=== PATIENT | female | born 1980 | race Caucasian/White ===

== ENCOUNTER 2023-04-24 09:10 | Outpatient (CLI) | payer OTHER, SELFPAY ==
--- NOTE | 2023-04-24 09:15 | CRLHL7_ITS ---
For Patients: As a result of the Century Cures Act, medical imaging exams and procedure reports are released immediately into your electronic medical record. You may view this report before your referring provider. If you have questions, please contact your health care provider. INDICATION: First trimester scan, establish dates. COMPARISON: None. TECHNIQUE: Real-time mcqueen-scale imaging of the pelvis was performed. FINDINGS: Sonographic imaging demonstrates a single living intrauterine gestation. The embryo demonstrates a regular cardiac rate measuring 169 beats per minute. The embryo`s crown-rump length measurement of 2.5 cm corresponds to a gestational age of 9 weeks 1 day with a sonographic due date of 11/26/2023. The yolk sac measures 4 x 6 x 6 millimeters. There are no gross abnormalities noted within the embryo at this early state of development. The gestational sac has a normal appearance. There is no evidence of a perigestational hemorrhage. The amount of fluid within the sac appears appropriate for gestational age. The cervix is closed. The myometrium appears normal. The ovaries are of normal size. Corpus luteal cyst right ovary there are no suspicious fluid collections noted in the cul-de-sac. IMPRESSION: Single living intrauterine with sonographic gestational age 9 weeks 1 day and sonographic due date 11/26/2023. Yolk sac measures 6 millimeters. Follow-up sonography in 7-14 days suggested. Dictated by Emerson Starr MD @ 04/24/2023 11:57:48 AM (Electronically Signed)
== END 2023-04-24 09:11 | disposition home or self-care (01) ==
LOC: US 09:11
PROVIDERS: Visit Provider Registered Nurse
DX: Z34.91 Encounter for supervision of normal pregnancy, unspecified, first trimester (principal); Z3A.09 9 weeks gestation of pregnancy
CPT/HCPCS: 76817

== ENCOUNTER 2023-04-24 10:25 | Outpatient (CLI) | payer OTHER, SELFPAY ==
[2023-04-24 18:01] LABS: Chlamydia DNA Amplified* Not Detected (No Detected); GC DNA Amplified* Not Detected (No Detected)
== END 2023-04-24 10:26 | disposition home or self-care (01) ==
PROVIDERS: Visit Provider Registered Nurse
DX: Z34.91 Encounter for supervision of normal pregnancy, unspecified, first trimester (principal)
CPT/HCPCS: 86592; 86703; 86704; 86706; 86762; 86787; 86803; 86850; 86900; 86901; 87086; 87340; 87491; 87591

== ENCOUNTER 2023-05-01 11:51 | Outpatient (CLI) | payer OTHER, SELFPAY ==
--- NOTE | 2023-05-01 12:15 | CRLHL7_ITS ---
For Patients: As a result of the Century Cures Act, medical imaging exams and procedure reports are released immediately into your electronic medical record. You may view this report before your referring provider. If you have questions, please contact your health care provider. INDICATION: Follow-up yolk sac COMPARISON: 04/24/2023 TECHNIQUE: Real-time mcqueen-scale imaging of the pelvis was performed. FINDINGS: Sonographic imaging demonstrates a single living intrauterine gestation. The embryo demonstrates a regular cardiac rate measuring 171 beats per minute. The embryo`s crown-rump length measurement of 3.6 cm corresponds to a gestational age of 10 weeks 4 days with a sonographic due date of 11/23/2023. The yolk sac measures 5.6 x 5.6 x 5.5 millimeters. Normal morphology. There are no gross abnormalities noted within the embryo at this early state of development. The gestational sac has a normal appearance. There is no evidence of a perigestational hemorrhage. The amount of fluid within the sac appears appropriate for gestational age. The cervix is closed. The myometrium appears normal. Corpus luteal cyst right ovary. Left ovary not visualized. There are no suspicious fluid collections noted in the cul-de-sac. IMPRESSION: Single living intrauterine with sonographic gestational age 10 weeks 4 days and sonographic due date 11/23/2023. Yolk sac appears normal. Dictated by Emerson Starr MD @ 05/02/2023 10:07:26 AM (Electronically Signed)
== END 2023-05-01 11:52 | disposition home or self-care (01) ==
LOC: US 11:51
PROVIDERS: Visit Provider Registered Nurse
DX: Z34.91 Encounter for supervision of normal pregnancy, unspecified, first trimester (principal); Z3A.10 10 weeks gestation of pregnancy
CPT/HCPCS: 76817

== ENCOUNTER 2023-09-02 13:36 | Outpatient (CLI) | payer OTHER, SELFPAY | END 2023-09-02 13:37 | disposition home or self-care (01) | LOC: NFLDREF 09-17 12:16 | PROVIDERS: Visit Provider Obstetrics & Gynecology | DX: Z34.83 Encounter for supervision of other normal pregnancy, third trimester (principal) | CPT/HCPCS: 86592 ==

== ENCOUNTER 2023-10-14 07:22 | Outpatient (CLI) | payer OTHER, SELFPAY ==
--- NOTE | 2023-10-14 07:15 | CRLHL7_ITS ---
For Patients: As a result of the Century Cures Act, medical imaging exams and procedure reports are released immediately into your electronic medical record. You may view this report before your referring provider. If you have questions, please contact your health care provider. INDICATION: Third trimester scan, evaluate growth. COMPARISON: 05/01/2023, 07/29/2023 TECHNIQUE: Real time mcqueen scale imaging of the fetus was performed as well as color Doppler and spectral Doppler analysis of the umbilical artery. FINDINGS: Sonographic imaging demonstrates a single living intrauterine gestation. Fetus demonstrates a regular cardiac rate of 135 beats per minute. Fetus has a vertex position. The placenta lies anteriorly. Amniotic fluid volume appears normal and there is a single deepest vertical pocket: 6.5 cm. The estimated weight is 2084gm which lies at the 17th %. On the prior OB ultrasound exam dated 07/29/2023 the estimated weight was at the 48th%. BPD less than 3rd percentile. HC 6th percentile. AC 13th percentile. FL 42nd percentile. The HC/AC ratio measures 1.05 range (0.96-1.11). IMPRESSION: Sonographic gestational age 32 weeks 6 days and sonographic due date of 12/03/2023. Sonographic age 8 days behind the clinical age. Estimated weight 17th percentile. Abdominal circumference 13th percentile. BPD less than 3rd percentile. Dictated by Emerson Starr MD @ 10/14/2023 11:26:57 AM (Electronically Signed)
== END 2023-10-14 07:23 | disposition home or self-care (01) ==
LOC: US 07:22
PROVIDERS: Visit Provider Obstetrics & Gynecology
DX: Z34.93 Encounter for supervision of normal pregnancy, unspecified, third trimester (principal); Z3A.32 32 weeks gestation of pregnancy
CPT/HCPCS: 76816

== ENCOUNTER 2023-10-28 13:13 | Outpatient (CLI) | payer OTHER, SELFPAY ==
[2023-10-29 15:37] LABS: Strep B DNA Probe Negative (Negative)
[2023-10-29 15:48] LABS: Strep B Susceptibility Needed? No
== END 2023-10-28 13:14 | disposition home or self-care (01) ==
PROVIDERS: Visit Provider Obstetrics & Gynecology
DX: Z34.93 Encounter for supervision of normal pregnancy, unspecified, third trimester (principal); Z3A.36 36 weeks gestation of pregnancy
CPT/HCPCS: 87081; 87653

== ENCOUNTER 2023-11-17 16:11 | Inpatient (IN) | payer OTHER, SELFPAY ==
[2023-11-17] VITALS (7 sets, daily range): BP systolic 125–145; BP diastolic 69–95; PULSE 49–72; RESP 16; TEMP 36.8–36.9; O2SAT 99; BMI 36.8
[2023-11-17] MEDS: miSOPROStoL 25 MCG/0.25 TABLET VAGINAL ×3 (16:55→23:36)
--- NOTE | 2023-11-17 17:15 | P.LDBA_ITS ---
Subjective History of Present Illness Time Seen by Provider: 17:15 Date Seen: 11/17/23 Narrative: Patient is being admitted to Labor and Delivery for scheduled induction of labor due to AMA. She is a 43 year old at 38.6 weeks gestation. Her full history and physical was dictated by Dr. Juan on 11/06/23. Please see this for details. She is anxious now that her induction is here. Feels like she's coping well though. Will let me know if she anxiety worsens. They are excited for [place] and has everything ready. She is adaptable in her expectations and note she is not scared of a delivery. However, would like to do everything possible to avoid an emergency delivery. Anticipate that she will eventually want an epidural. Active movement. Denies LOF, vaginal bleeding or abnormal vaginal discharge. Some Siddhartha Osorio contractions. Specific Issues/Plans G 2 P 0010 at 9 weeks 2 days based on LMP 1. AMA. 43 at time of delivery. * Genetic screen: NIPT drawn on 05/01, NEGATIVE * Level 2/MFM consult: 07/08/23 incidental echogenic intracardiac focus, no other anomalies. F/U with MFM scheduled in 3 weeks to reassess structures not well seen. * Follow-up 07/29/2023: Cephalic, anterior placenta, three-vessel cord, normal fluid, EFW 48%, AC 43% normal completed anatomy scan. * [x] Growth US @ 34 weeks - EFW 2084g at 17%ile, BPD <3%ile, HC 6%ile, AC 13%ile. Discussed head measurements, offered repeat MFM consult but has normal NIPT/level 2 US. * Weekly NST/BPP starting at 36 weeks - testing form completed 10/13 * Delivery 39-40 weeks 2. BMI 36.1 * Low dose aspirin at 12 weeks * Weekly BPP and/or NST at 36 weeks 3. HSV. * Prophylaxis at 36 weeks * Ordered on 10/28/23 4. Anxiety. * Lexapro 10mg daily. Will send refills. States she is stable when on her medication. 5. Nonimmune to hepatitis-B. Vaccine given 05/17/2023 Flu: completed Covid: completed, not boosted. Recommended. Declined. TDAP: 09/16/23 OB - Problem Based A/P Additional Plan (1) : Status: Acute (2) Advanced maternal age (AMA), 40 years or greater: Status: Acute (3) Anxiety and depression: Status: Acute (4) GERD (gastroesophageal reflux disease): Status: Acute (5) Genital herpes: Status: Acute (6) Obesity (BMI 30-39.9): Status: Acute Plan Induction ? SVE /2 ? [place] irregular contractions ? Pain management plan: Epidural eventually ? Cervical ripening: Misoprostol PV per protocol Wellbeing NST: Baseline 130s beats per minute, moderate variability, multiple 15 x 15 accelerations, negative decelerations. Cat I [place]: Irregular GHTN r/o Pre-Eclampsia ? Based on persistent mild range in blood pressures since admission. This is a new finding for her. ? BPs 130s-140s/90s ? Symptoms: Asymptomatic ? Magnesium: currently not indicated ? IV antihypertensives: currently not indicated ? Pre-eclampsia labs: Pending OB Exam Physical Exam Vital signs: Temp Pulse Resp BP Pulse Ox 98.5 F 65 16 131/92 H 99 11/17/23 16:42 11/17/23 16:42 11/17/23 16:42 11/17/23 16:42 11/17/23 16:42 Narrative: Physical exam: General: No acute distress Psych: Alert and oriented x3, full affect HEENT: Normocephalic, atraumatic Lungs: Unlabored breathing Neuro: No focal deficit. Mentating appropriately Pelvic exam: /-2 per RN check
[2023-11-17 19:24] LABS: Basophils Absolute Auto 0.04 K/uL (0.00-0.30); Basophils Percent Auto 0.5 % (0.0-3.0); Eosinophils Absolute Auto 0.31 K/uL (0.00-0.50); Eosinophils Percent Auto 3.5 % (0.0-7.0); Hematocrit 41.3 % (33.0-51.0); Hemoglobin* 13.6 gm/dL (12.0-16.0); Immature Granulocytes Abs Auto 0.02 K/uL (0.00-0.30); Immature Granulocytes Pct Auto 0.2 %; Lymphocytes Absolute Auto 1.96 K/uL (0.90-2.90); Lymphocytes Percent Auto 22.4 % (20-44); Mean Corpuscular HGB Conc 33 gm/dL (32-36); Mean Corpuscular Hemoglobin 29 pg (26-34); Mean Corpuscular Volume 87 fL (80-100); Monocytes Percent Auto 8.3 % (0.0-11.0); Neutrophils Percent Auto 65.1 % (42.0-72.0); Platelet Count* 259 K/uL (140-440); RDW Coefficient of Variation % 13.1 % (11.5-15.5); Red Blood Count 4.73 m/uL (4.00-5.20); White Blood Count* 8.76 K/uL (4.50-11.00)
[2023-11-17 19:25] LABS: Slide Review Reflex No
[2023-11-17 19:39] LABS: Alanine Aminotransferase* 17 U/L (4-35); Aspartate Amino Transferase* 30 U/L (12-35); Blood Urea Nitrogen* 12 mg/dL (5-24); Creatinine* 0.6 mg/dL (0.5-1.5); Est. Creatinine Clearance* 106.55; Estimated Glomerular Filt Rate 116 ml/min
[2023-11-17 19:48] LABS: Total Protein Urine < 5 mg/dL
[2023-11-17 19:49] LABS: Creatinine Urine 65.7 mg/dL; Protein Creatinine Ratio Urine 0.08 (0-0.19)
[2023-11-18] VITALS (68 sets, daily range): BP systolic 104–149; BP diastolic 49–90; PULSE 46–110; RESP 16–18; TEMP 36.6–37.2; O2SAT 80–100
[2023-11-18] MEDS: hydrOXYzine pamoate 25 MG CAPSULE 100 MG PO (00:54)
[2023-11-18] MEDS: miSOPROStoL 25 MCG/0.25 TABLET VAGINAL ×2 (05:08→08:27)
[2023-11-18] MEDS: LACTATED RINGERS 1000 ML 1,000 ML IV (06:30)
--- NOTE | 2023-11-18 12:08 | PM.OBPNL ---
Subjective Time Seen by Provider: 11:50 Date Seen: 11/18/23 Narrative: Ju is a 43 yo woman at 39 0/7 weeks' gestation here for IOL for AMA. Thus far, she has received 5 doses of vaginal cytotec for cervical ripening. She is feeling more contractions, mostly in her back. Objective Exam: Gen - On birthing ball when I enter SVE - 2 / 80 / -2 / anterior / soft Vital Signs: Last Vital Signs Temp 98.5 F 11/18/23 08:16 Pulse 46 L 11/18/23 08:16 Resp 16 11/17/23 16:42 BP 129/87 11/18/23 08:16 Pulse Ox 99 11/18/23 04:36 Comments: tracing in last hour: Baseline 130 / accelerations present / no decelerations / moderate variability. Contractions are registering inconsistently Assessment Assessment: early labor Status: Category l Tracing Comments: GBS negative Labor Progress: Now with favorable cervix after 5 doses cytotec Maternal Status: Reassuring Plan Plan: Begin Pitocin augmentation of labor. Continuous monitoring.
[2023-11-18] MEDS: OXYTOCIN 30 unit/500 ML in NS 30 UNIT/500 ML BAG IVPB (12:45)
[2023-11-18] MEDS: LACTATED RINGERS 1000 ML 1,000 ML 122 ML IV (14:35)
[2023-11-18] MEDS: ROPIVACAINE 0.2 % PF 10 ML INJ 20 MG EPIDURAL (16:28)
[2023-11-18] MEDS: LIDOCAINE 2% (PF) 5 ML VIAL EPIDURAL (16:29)
[2023-11-18] MEDS: ROPIVACAINE 0.2% 100 ml 100 ML 12 MG EPIDURAL (16:29)
--- NOTE | 2023-11-18 16:38 | PM.ANBPRC ---
[facility] Medical History Abnormal yolk sac ?O41.8X90 - Other specified disorders of amniotic fluid and membranes, unspecified trimester, not applicable or unspecified (ICD-10) History of abnormal cervical Pap smear ?Z87.42 - Personal history of other diseases of the female genital tract (ICD-10) Infertility History of HPV infection ?Z86.19 - Personal history of other infectious and parasitic diseases (ICD-10) Surgical History [place] teeth extracted ?K08.409 - Partial loss of teeth, unspecified cause, unspecified class (ICD-10) Family History Other Cardiovascular disease Dementia Ophthalmic disorder Prostate cancer Stroke Thyroid disease Social History 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 What is your current living situation?: I presently have a place to live Problems where you live: no known problems In the past 12 months, utilities in danger of being shut off: no In past 12 months, lack of transportation kept you from medical appts, meetings, work, or getting things needed for daily living: no In the past 12 mos, have been you worried that your food would run out before you had money to buy more?: never true In the past 12 mos, the food you bought just didn't last and you didn't have money to buy more?: never true Smoking Status: Never smoker How often does anyone, including family, friends and others, physically hurt you: never How often does anyone, including family, friends and others, insult or talk down to you: never How often does anyone, including family, friends and others, threaten you with harm: never How often does anyone, including family, friends and others, scream or curse at you: never Little interest or pleasure in doing things: not at all Feeling down, depressed, or hopeless: not at all Meds Home Medications and Allergies Home Medications ?Medication ?Instructions ?Recorded ?Confirmed ?Type docosahexaenoic acid 200 mg 200 mg PO DAILY 04/24/23 11/18/23 History capsule ( DHA) aspirin 81 mg tablet,delayed 81 mg PO QDAY 06/14/23 11/17/23 History release ondansetron HCl 4 mg tablet 4 mg PO Q8H PRN nausea and vomiting 08/06/23 11/17/23 History Allergies Allergy/AdvReac Type Severity Reaction Status Date / Time COVID-19 vacc, bv (Orig, AdvReac Severe Verified 11/06/23 12:57 Omicron BA.4/5) (Pfizer) [From Pfizer COVID Bival(12y up)()] Penicillins AdvReac Intermediate Hives Verified 11/06/23 12:57 Results Labs Labs: Laboratory Results - last 24 hr 11/17/23 11/17/23 11/17/23 19:07 19:19 Unknown WBC 8.76 RBC 4.73 Hgb 13.6 Hct 41.3 MCV 87 MCH 29 MCHC 33 RDW Coeff of Daniel 13.1 Plt Count 259 Neut % (Auto) 65.1 Lymph % (Auto) 22.4 [place] % (Auto) 8.3 Eos % (Auto) 3.5 Baso % (Auto) 0.5 Neut # (Auto) 5.70 Lymph # (Auto) 1.96 [place] # (Auto) 0.70 Eos # (Auto) 0.31 Baso # (Auto) 0.04 Abs Immat Gran (auto) 0.02 Imm/Tot Granulo (auto) 0.2 BUN 12 Creatinine 0.6 Estimated Creat Clear 106.55 Estimated GFR 116 AST 30 ALT 17 Urine Creatinine 65.7 Protein/Creatinin Ratio 0.08 Urine Total Protein < 5 Blood Type O Positive Antibody Screen NEGATIVE Vital Signs Vital Signs: Last Vital Signs Temp 98 F 11/18/23 12:43 Pulse 70 11/18/23 16:37 Resp 16 11/17/23 16:42 BP 133/77 11/18/23 16:37 Pulse Ox 99 11/18/23 16:36 Weight: 97.296 kg Height: 162.56 cm Anesthesia Procedures Epidural Insertion Patient Location: OB Start Time: 15:55 Stop Time: 16:39 Start Date: 11/18/23 Stop Date: 11/18/23 Reason for Block: procedure for pain Patient Position: sitting Performed By: Franc Davenport Preanesthetic Checklist: IV checked, risks and benefits discussed, surgical consent, monitors and equipment checked, pre-op evaluation, timeout performed and anesthesia consent Prep: chlorhexidine gluconate Monitoring: blood pressure monitoring, continuous pulse oximetry and heart rate Approach: midline Vertebral Space: lumbar (1-5) Epidural Technique: HENRY air Needle Type: Tuohy needle Injection Technique: continuous catheter Needle gauge: 17 Needle Length (cm): 10 cm Needle Insertion Depth (cm): 7 Catheter Gauge: 19 Catheter Type: multi-orifice Catheter at skin depth (cm): 13 Test Dose Result: negative and lidocaine 1.5% with epinephrine 1 to 200,000
[2023-11-18] MEDS: LACTATED RINGERS 1000 ML 1,000 ML 121 ML IV (18:28)
[2023-11-18] MEDS: TERBUTALINE 1 MG/ML INJ 0.25 MG SUBCUT (19:23)
--- NOTE | 2023-11-18 19:33 | P.OBPN_ITS ---
Subjective Time Seen by Provider: 19:34 Date Seen: 11/18/23 Narrative: Ju is a 43-year-old woman here for induction of labor for advanced maternal age, diagnosed with gestational hypertension intrapartum. She received 2 doses of vaginal Cytotec then had spontaneous rupture of membra lily and progressed into active labor. She had an epidural this afternoon. Before the epidural, her cervical exam had been 2 cm dilated, 80% effaced. Fetus exhibited deep decelerations into the 50s around 8:30 p.m.. Cervical exam at this time revealed her to be nearly completely dilated with circumferential cervical lip. Pitocin was stopped. She was placed on hands and knees. Fetus recovered to baseline of around 130, but continued to have variable decelerations with most contractions. Subsequent cervical exam by me showed her to be completely dilated and around +1/3 station at 7:00 p.m.. She has been pushing since that time, but fetus has exhibited deep variable decelerations with most contractions, most recently not responding to position changes. station is too high for me to reliably succeed at vacuum assisted vaginal delivery. Therefore, I recommended she be given terbutaline. She has received this injection. heart rate does recover between contractions to 150, and, in the last 15 minutes, variable decelerations have become less deep. Fetus continues to have moderate variability between contractions. Ju was pushing with good effort, but fetus is intolerant of labor. Because of this, I have recommended for intolerance of labor. Ju agrees. We briefly discussed risks of , including bleeding, infection, thromboembolism. Ju requests bilateral salpingectomy if her is doing well after delivery. Objective Exam: Physical exam: General: No acute distress Psych: Alert and oriented x3, full affect HEENT: Normocephalic, atraumatic Heart: Regular rate and rhythm, no murmur rub or gallop Lungs: Clear to auscultation bilaterally Abdomen: Soft, nontender, gravid Lower extremities: No edema or erythema Pelvic exam: Complete, +1, OA, pushing with good effort Vital Signs: Last Vital Signs Temp 98.4 F 11/18/23 18:05 Pulse 89 11/18/23 19:21 Resp 18 11/18/23 18:05 BP 118/82 11/18/23 19:21 Pulse Ox 100 11/18/23 18:33 Assessment Assessment: other (Second stage labor, intolerance of labor) Status: Category ll Tracing Comments: As above Labor Progress: 2nd stage Maternal Status: Normotensive Plan Plan: with possible bilateral salpingectomy
[2023-11-18] MEDS: AZITHROMYCIN 500 MG in 0.9 % SODIUM CHLORIDE 250 ml 250 ML 255 MG IVPB (19:48)
[2023-11-18] MEDS: CEFAZOLIN 2 GM INJ IVP (20:00)
[2023-11-18] MEDS: LACTATED RINGERS 1000 ML 1,000 ML 100 ML IV (20:13)
--- NOTE | 2023-11-18 21:33 | SUR.OPER ---
PATIENT ARRIVED TO OPERATING ROOM WITH ROB INTACT/BLOODY DRAINAGE PRESENT-EPIDURAL IN PLACE.
--- NOTE | 2023-11-18 21:38 | P.ANES_ITS ---
Anesthesia Charges Start Date/Time Anesthesia Start Date: 11/18/23 Anesthesia Start Time: 21:38 Stop Date/Time Anesthesia Stop Date: 11/18/23 Anesthesia Stop Time: 21:38 Summary Emergency: CERTIFIED MEDICINE AIDE
--- NOTE | 2023-11-18 22:24 | PM.OBPRCCS ---
Procedure Date of procedure: 11/18/23 Pre-op diagnosis: Non reassuring status, undesired fertility Post-op diagnosis: same Procedure Done: Global Will [facility] bill your pro fee for this procedure?: Yes Blood Loss Measurement Type: QBL (585) Bakri Used: No IV fluids (mL): 1,400 Urine Output (mL): 100 Urine Output Comment: Blood tinged at start of procedure Surgeon: Danielle Hassan MD Anesthesia Type: Epidural Findings: 1. Male , cephalic OA presentation, Apgars of 8 and 9, weight 5 lb, 15 oz 2. Normal appearance to uterus, bilateral tubes and ovaries Procedure Name: Primary low-transverse delivery Bilateral salpingectomy Procedure Description: Patient was taken to the operating room with IV running. She received cefazolin and azithromycin in preoperative prophylaxis. Epidural anesthesia had previously been administered. Brand catheter was previously inserted. She was prepped and draped in the usual sterile fashion. Anesthesia was tested and found to be adequate. A low-transverse skin incision was made with a scalpel and carried through to the underlying layer of fascia with the scalpel. The subcutaneous fat was dissected off the underlying fascia bluntly. The fascia was nicked in the midline with a scalpel, and this incision was extended laterally with scissors. The rectus muscles were in the midline. Peritoneum was identified and entered bluntly. Bovie was used to widen this opening laterally. Yeison O retractor was inserted and tightened down, providing excellent visualization of the lower uterine segment. The bladder reflection was found to be advanced along the lower uterine segment. A bladder flap was created with a combination of sharp and blunt dissection. There was significant bleeding noted between the lower uterine segment and the bladder reflection at time of blunt dissection. Low-transverse uterine incision was made with a scalpel. Incision was widened bluntly. The 's head was grasped through the hysterotomy and delivered with the help of fundal pressure. The remainder of the body delivered without incident. Cord was clamped and cut after 30 seconds. Infant was handed off to attending nurses. The placenta was delivered with gentle traction on the cord. The uterus was exteriorized and cleaned of all clots and debris with the dry lap pad. The hysterotomy was reapproximated with 0 Vicryl in a running, locked fashion. A total of 3 [id number]-[id number] sutures were used in imbricating fashion to obtain hemostasis. The adnexa were examined and noted to be normal in appearance. The left tube was grasped in its mid isthmic portion with a Inocente clamp. The blood supply was coagulated and transected distally with the LigaSure exact device. Dissection was carried medially through the mesosalpinx until reaching the left cornua, with the tube was cauterized and transected. This tube was sent to pathology. This procedure was then repeated on the patient's right side. Hemostasis was noted bilaterally. The uterus was returned to the abdomen. The cul-de-sac and gutters were cleansed with dampened laparotomy sponge, removing any further clots and debris. The Yeison O retractor was removed. The hysterotomy was reexamined and found to be hemostatic. However, there continued to be fairly heavy bleeding between the bladder reflection and the lower uterine segment, noticed when laparotomy packs were removed. Three [id number]-bd-hhrwr sutures of 2-0 chromic were required around the superior aspect of the bladder reflection. These were successful in obtaining hemostasis and placed superficially. The bladder was obviously holding fluid at this time. Yisel hemostatic agent was used between the bladder and lower uterine segment. The peritoneum was reapproximated with 2 0 Vicryl in a running fashion. The rectus muscles were examined and Bovie used on oozing vessel. The fascia was reapproximated with 0 Vicryl in a running fashion. Subcutaneous fat was irrigated and Bovie used on oozing vessels. The subcutaneous fat was reapproximated with 2 0 plain gut suture in an interrupted fashion. The skin was closed with a subcuticular stitch of 4-0 Monocryl. Surgical glue was applied above this. Patient tolerated procedure well was taken to recovery area in stable condition. Pathology: specimen obtained, sent to pathology Surgery Debrief Performed: Yes Surgery Debrief Comment: I confirmed my request to send bilateral fallopian tubes and placenta to pathology for further analysis with the OR staff. Condition: stable Disposition: floor [address] Infant total score - 1 minute: 8 total score - 5 minute: 9
[2023-11-18] MEDS: ACETAMINOPHEN 500 MG TABLET 1000 MG PO (23:54)
[2023-11-19] VITALS (25 sets, daily range): BP systolic 101–131; BP diastolic 62–88; PULSE 66–82; RESP 16–20; TEMP 36.2–36.9; O2SAT 96–99
[2023-11-19] MEDS: KETOROLAC 30 MG/ML inj IVP ×4 (03:54→22:09)
[2023-11-19 05:41] LABS: Basophils Percent Auto 0.1 % (0.0-3.0); Hematocrit 35.1 % (33.0-51.0); Hemoglobin* 11.5 gm/dL (12.0-16.0); Immature Granulocytes Pct Auto 0.3 %; Lymphocytes Percent Auto 5.6 % (20-44); Mean Corpuscular HGB Conc 33 gm/dL (32-36); Mean Corpuscular Hemoglobin 29 pg (26-34); Mean Corpuscular Volume 88 fL (80-100); Monocytes Percent Auto 7.7 % (0.0-11.0); Neutrophils Percent Auto 86.3 % (42.0-72.0); Platelet Count* 225 K/uL (140-440); RDW Coefficient of Variation % 13.2 % (11.5-15.5); White Blood Count* 14.76 K/uL (4.50-11.00)
[2023-11-19 05:45] LABS: Slide Review Reflex No
[2023-11-19 05:56] LABS: Alanine Aminotransferase* 15 U/L (4-35); Aspartate Amino Transferase* 44 U/L (12-35); Blood Urea Nitrogen* 11 mg/dL (5-24); Creatinine* 0.7 mg/dL (0.5-1.5); Est. Creatinine Clearance* 91.33; Estimated Glomerular Filt Rate 111 ml/min
--- NOTE | 2023-11-19 09:04 | PM.OBPNVD1 ---
OB - PN:Subj Subjective Date Seen: 11/19/23 Patient comments OB post-: no complaints, pain well controlled, tolerating diet and flatus present [place] status: (working on latch and pumping) and doing well feeding status: exclusively (finger feeding expressed milk and pumping) Narrative: Ju feels well.? Her pain is well controlled with current medications.? She has no new complaints.? Urinary output is adequate and she is voiding without difficulty.? Has a good appetite, is tolerating a general diet, is passing flatus, and has not had a bowel movement.? Has scant amount of rubra lochia.? She is ambulating well.?She is and working on the latch and pumping. OB - PN: Obj Exam Physical Exam: Vital signs: Temp Pulse Resp BP Pulse Ox O2 Del Method 97.6 F 67 16 130/77 99 Room Air 11/19/23 08:16 11/19/23 08:16 11/19/23 08:37 11/19/23 08:16 11/19/23 08:16 11/19/23 08:16 Narrative: GENERAL APPEARANCE:? normal affect, alert, no distress? MOOD:? appropriate? CHEST:? clear to auscultation and percussion? HEART:? regular rate and rhythm? ABDOMEN:? soft, non-tender the uterine fundus is U/2 and is appropriate for the stage of recovery. Incision dressing is clean, dry and intact.? EXTREMITIES:? normal and no edema? Urinary Catheter Management: Urethral: Cath placed during this visit: yes, but has since been removed by the nurse Reason for continuing: surgical procedure Removal date: 11/19/23 Removal time: 05:10 OB - PN: Obj Data Labs Labs: Laboratory Results - last 24 hr 11/19/23 05:00 WBC 14.76 H RBC 4.00 Hgb 11.5 L Hct 35.1 MCV 88 MCH 29 MCHC 33 RDW Coeff of Daniel 13.2 Plt Count 225 Neut % (Auto) 86.3 H Lymph % (Auto) 5.6 L [place] % (Auto) 7.7 Eos % (Auto) 0.0 Baso % (Auto) 0.1 Neut # (Auto) 12.70 H Lymph # (Auto) 0.80 L [place] # (Auto) 1.10 H Eos # (Auto) 0.00 Baso # (Auto) 0.00 Abs Immat Gran (auto) 0.00 Imm/Tot Granulo (auto) 0.3 BUN 11 Creatinine 0.7 Estimated Creat Clear 91.33 Estimated GFR 111 AST 44 H ALT 15 OB - PN: A/P Delivery Assessment and Plan (1) Anxiety and depression: Status: Acute (2) Genital herpes: Status: Acute (3) Lactating mother: Status: Acute (4) care following delivery: Status: Acute Plan day: 1 Plan: routine care Comments: Anticipate discharge home tomorrow or the following day. She would like to consider discharge home tomorrow if pain is well controlled.
[2023-11-19 23:13] LABS: Rapid Plasma Reagin (RPR) Non Reactive (Non Reactive)
[2023-11-20 04:00] VITALS: BP 107/67; PULSE 67; RESP 16; TEMP 36.4; O2SAT 99
[2023-11-20] MEDS: IBUPROFEN 600 MG TABLET PO (07:31)
[2023-11-20] MEDS: DOCUSATE SODIUM 100 MG CAPSULE PO (07:31)
[2023-11-20 07:38] VITALS: BP 129/84; PULSE 67; RESP 16; TEMP 36.4; O2SAT 100
--- NOTE | 2023-11-20 07:48 | P.DS_ITS ---
DS: Providers Provider Date Seen: 11/20/23 Date of admission: 11/17/23 16:11 Primary care physician: Not a Local Provider Admitting Clinician: Danielle Hassan MD Attending Physician on discharge: Josh OSPINA APRN Date of Discharge: 11/20/23 DS: Diagnosis Discharge Diagnosis (1) care following delivery: Status: Acute (2) Lactating mother: Status: Acute (3) Anxiety and depression: Status: Acute (4) Advanced maternal age (AMA), 40 years or greater: Status: Acute (5) S/P tubal ligation: Status: Acute Exam Narrative: Exam Narrative: GENERAL APPEARANCE:? normal affect, alert, no distress MOOD:? appropriate CHEST:? clear to auscultation HEART:? regular rate and rhythm ABDOMEN:? soft, non-tender the uterine fundus is At Umbilicus, Midline and is appropriate for the stage of recovery. EXTREMITIES:? normal and mild edema Incision: Healing well, no surrounding erythema, only mild brusing. No abnormal induration or discharge Const: Vital Signs, click to edit/add: Vital Signs - 24 hr 11/19/23 08:16 11/19/23 08:37 11/19/23 09:37 Temperature 97.6 F Pulse Rate [Pulse Oximeter] 67 Respiratory Rate 16 16 16 Blood Pressure [Le ft Arm] 130/77 Pulse Oximetry 99 Oxygen Delivery Me thod Room Air 11/19/23 10:37 11/19/23 11:37 11/19/23 11:43 Temperature 97.5 F L Pulse Rate [Pulse Oximeter] 69 Respiratory Rate 16 16 16 Blood Pressure [Le ft Arm] 114/75 Pulse Oximetry Oxygen Delivery Me thod Room Air 11/19/23 12:37 11/19/23 13:37 11/19/23 14:21 Temperature Pulse Rate [Pulse Oximeter] Respiratory Rate 16 16 16 Blood Pressure [Le ft Arm] Pulse Oximetry Oxygen Delivery Me thod 11/19/23 16:00 11/19/23 16:30 11/19/23 17:33 Temperature 97.2 F L Pulse Rate [Pulse Oximeter] 67 Respiratory Rate 16 16 16 Blood Pressure [Le ft Arm] 101/62 Pulse Oximetry 97 Oxygen Delivery Me thod Room Air 11/19/23 18:37 11/19/23 19:37 11/19/23 20:00 Temperature 97.9 F Pulse Rate [Pulse Oximeter] 82 Respiratory Rate 16 18 18 Blood Pressure [Le ft Arm] 128/84 Pulse Oximetry 99 Oxygen Delivery Me thod Room Air 11/19/23 20:37 11/20/23 04:00 11/20/23 07:38 Temperature 97.6 F 97.6 F Pulse Rate [Pulse Oximeter] 67 67 Respiratory Rate 18 16 16 Blood Pressure [Le ft Arm] 107/67 129/84 Pulse Oximetry 99 100 Oxygen Delivery Me thod Room Air Room Air OB - DS: Summary Hospital Course Hospital Course: The patient is a 43 year old G 2 P 1011 that was admitted to the [facility] on 11/17/23 for IOL for AMA at 38w6d. She had an uncomplicated delivery with bilateral tubal ligation. She delivered a viable male infant. She is and having difficulty with latch so is supplementing with pumped colostrum and formula. the patient has done well. The patient feels well.? The pain is well controlled with current medications.? She has no new complaints.? Vitals have been stable.? She has remained afebrile.? Has a good appetite, is tolerating a general diet.? She is voiding without difficulty.? She is passing gas and has not had a bowel movement.? She is ambulating and denies any dizziness.? Has small amount of rubra lochia. ?? Problems: none? Peripartum Data delivery method: Primary C/S; Labored Procedures: Procedures Operation Date: 11/18/23 20:15 Actual Procedure Side Surgeon p TRANSVERSE SECTION, BILATERAL SALPINGECTOMY Not Applicable Danielle Hassan MD Procedures: tubal ligation/salpingectomy [place] Infant Gender: Male Discharge Plan: Home Status at Discharge Overall status at discharge: patient is progressing back to baseline Time Spent with Patient Time attestation: Total time spent providing and/or coordinating discharge services: Time spent: Less than 30 minutes Discharge Plan Discharge Disposition: Home, Self-Care Date of Admission: 11/17/23 16:11 Attending Provider on Discharge: Kiara Cristina Primary Care Provider: Provider,Not a Local Condition: Stable Anticipated Discharge Date/Time: 11/20/23 12:38 Discharge Medications: Continued DHA 200 mg capsule 200 mg PO DAILY escitalopram oxalate [Lexapro] 10 mg tablet 10 mg PO QDAY Qty: 90 3RF Discontinued valacyclovir 1 gram tablet 1,000 mg PO QDAY Qty: 60 0RF Rx Instructions: For prophylaxis until delivery aspirin 81 mg tablet,delayed release (DR/EC) 81 mg PO QDAY ondansetron HCl 4 mg tablet 4 mg PO Q8H PRN (Reason: nausea and vomiting) Discharge Orders: Discharge Order (Routine); Ordered 11/20/23 Ordered By: Kiara Cristina Patient Education: OB [place] [facility], OB /Breast Feeding Activity Level: Activity as Tolerated Discharge Diet: Regular Follow Up Appointments: Danielle Hassan MD [Staff Physician] - Provider,Not a Local [Primary Care Provider] - Forms: [employer] Info Instructions Discharge Comments: Discharge home with baby. Follow up in 2 weeks and 6 weeks. , may see if needed Hgb 11.4. Labs WNL or stable with trending Call for signs/symptoms of preeclampsia For pain control of perineum, breast and pelvic pain, take 600 mg Ibuprofen every 6 hours as needed by mouth or 1000 mg acetaminophen (Tylenol) every 6 hours by mouth as needed. You can alternate these so you are taking something every 3 hours as needed. A heating pad can also be used for your abdomen or breasts. Use over the counter Docusate sodium to soften stools, 1-2 x daily by mouth, until stools are soft and regular.
--- NOTE | 2023-11-26 11:56 | W.PM.NB ---
Nerve Block Nerve Block Time Seen by Provider: 20:23 Date Seen: 11/18/23 Type of block requested by surgeon for post-operative analgesia: TAP Side: bilateral Time out performed: Yes Verification of patient name: Yes Verification of date of : Yes Site marking: site marked Name of person performing procedure: Donald Rm Continuous monitoring Was continuous monitoring of O2 sat, B/P, cardiac rehabilitation program director, recorded every 15 minutes?: Yes Procedure Checklist: sterile prep, needles and gloves Ultrasound guided. Images saved: Yes Medications given in 5ml increments after negative aspiration: Marcaine %: 0.25 mL: 30 Needle gauge: 20 and Exparel mL: 10 Needle gauge: 20 Patient tolerated procedure well: Yes Additional comments: Injected in 5ml increments after negative aspiration Block performed by Franc Davenport CRNA Block Charges Block Charge (with Pro Fee): TAP Bilateral Use of Ultrasound Machine for Block: Yes- US Guidance/pain block
== END 2023-11-20 12:06 | disposition home or self-care (01) | DRG 784 ==
PROVIDERS: Admitting Provider Obstetrics & Gynecology; Visit Provider Obstetrics & Gynecology
PROC: 10D00Z1 Extraction of Products of Conception, Low, Open Approach (ICD-10-PCS; CPT 59514; principal; 2023-11-18 20:00)
DX: O13.3 Gestational [pregnancy-induced] hypertension without significant proteinuria, third trimester (principal); O98.32 Other infections with a predominantly sexual mode of transmission complicating childbirth; O76 Abnormality in fetal heart rate and rhythm complicating labor and delivery; A60.09 Herpesviral infection of other urogenital tract; O99.344 Other mental disorders complicating childbirth; F32.A Depression, unspecified; F41.9 Anxiety disorder, unspecified; O99.214 Obesity complicating childbirth; K21.9 Gastro-esophageal reflux disease without esophagitis; Z30.2 Encounter for sterilization; Z3A.38 38 weeks gestation of pregnancy; Z37.0 Single live birth
CPT/HCPCS: 01967; 01968; 36415; 59200; 64488; 76942; 82565; 82570; 84156; 84450; 84460; 84520; 85025; 85027; 86592; 86850; 86900; 86901; 88302; 88307; 99140; A4344; A9270; C9290; J0456; J0665; J0690; J1100; J1885; J2274; J2371; J2405; J2590; J2795; J3010; J3105; J7050; J7120